=== PATIENT | male | born 1990 | race Caucasian/White ===

== ENCOUNTER 2018-09-26 15:10 | Emergency (ER) | payer SELFPAY ==
[~2018-09-26] VITALS: Ht 182.9 cm; Wt 90.7 kg
[~2018-09-26 15:10] MED LIST: HYDACE5 PO; META800 PO; NAPR500 PO; RXHYDACE PO; RXTRAM50 PO; TRAM50 PO; TYLENOL PRN
== END 2018-09-26 17:04 | disposition home or self-care (01) ==
LOC: ER 15:10
DX: S60.221A Contusion of right hand, initial encounter (principal); W26.9XXA Contact with unspecified sharp object(s), initial encounter
CPT/HCPCS: 29125; 73110; 99283-25